=== PATIENT | female | born 1985 | race Caucasian/White ===

== ENCOUNTER 2022-02-05 06:08 | Emergency (ER) | payer BC ==
[2022-02-05 06:20] VITALS: BP 139/96; PULSE 96
[2022-02-05] MEDS ORDERED: Sodium Chloride 0.9% 10 ML Syringe FLUSH PRN (07:10)
[2022-02-05] MEDS ORDERED: Famotidine 20 MG/2 ML SDV IVPUSH ONE (07:11)
[2022-02-05] MEDS ORDERED: diphenhydrAMINE 50 MG/ML SDV IVPUSH ONE (07:11)
[2022-02-05] MEDS ORDERED: methylPREDNISolone Sodium Succinate 125 MG/2 ML SDV IVPUSH ONE (07:11)
== END 2022-02-05 08:28 | disposition home or self-care (01) ==
LOC: JD.ED 06:08
DX: L50.0 Allergic urticaria (principal); E03.9 Hypothyroidism, unspecified; Z88.2 Allergy status to sulfonamides; Z88.8 Allergy status to other drugs, medicaments and biological substances; Z79.899 Other long term (current) drug therapy
CPT/HCPCS: 96374; 96375; 99283; J1200; J2930; J3490

== ENCOUNTER 2022-02-07 13:16 | Emergency (ER) | payer BC ==
[2022-02-07 13:58] VITALS: BP 145/82; PULSE 97
[2022-02-07] MEDS ORDERED: methylPREDNISolone Sodium Succinate 125 MG/2 ML SDV IVPUSH ONE (14:22)
[2022-02-07] MEDS ORDERED: Sodium Chloride 0.9% 10 ML Syringe FLUSH PRN (14:22)
[2022-02-07] MEDS ORDERED: Sodium Chloride 0.9% 1,000 ML IV ONE (14:22)
[2022-02-07] MEDS ORDERED: Famotidine 20 MG/2 ML SDV IVPUSH ONE (14:22)
[2022-02-07] MEDS ORDERED: EPINEPHrine 1 MG/ML 30 ML MDV IVPUSH ONE (14:24)
[2022-02-07] MEDS ORDERED: EPINEPHrine 1 MG/ML SDV IVPUSH ONE (15:00)
[2022-02-07] MEDS ORDERED: LORazepam 2 MG/ML SDV IVPUSH ONE (15:27)
== END 2022-02-07 17:15 | disposition home or self-care (01) ==
LOC: JD.ED 13:16
DX: R11.0 Nausea (principal); R42 Dizziness and giddiness; T44.5X5A Adverse effect of predominantly beta-adrenoreceptor agonists, initial encounter; E03.9 Hypothyroidism, unspecified; Z88.2 Allergy status to sulfonamides; Z88.8 Allergy status to other drugs, medicaments and biological substances
CPT/HCPCS: 36415; 80053; 85025; 86140; 96374; 96375; 99284; J0171; J2060; J2930; J3490; J7030; 99282